=== PATIENT | female | born 1995 | race Caucasian/White ===

== ENCOUNTER 2017-11-22 14:23 | Emergency (ER) | payer OTHER ==
[~2017-11-22 14:23] MED LIST: CEFU500T50 PO; HYDR-4309 PO; NORG1TAB82 PO
[2017-11-22] MEDS ORDERED: MIRENA (14:44)
[2017-11-22] MEDS ORDERED: ONDANSETRON 8 MG TAB PO PRN (15:00)
[2017-11-22] MEDS ORDERED: ONDANSETRON 4 MG ODT TABDP SL ONE (15:05)
[2017-11-22 15:30] VITALS: BP 107/68
[2017-11-22] MEDS ORDERED: ONDA4TAB PO (15:52)
[2017-11-22] MEDS ORDERED: KET10 PO (15:52)
--- NOTE | 2017-11-22 16:00 | ER Report ---
History and Physical Time Seen By MD: 14:35 Hx. of Stated Complaint: PATIENT STATES THAT ON THURSDAY SHE HAD AN IUD PLACED; STATES THAT IT WAS HARD GETTING IN AND HER CRAMPS HAVE BEEN GETTING WORSE HPI/ROS Chief Complaint: "Abdominal Cramping" HPI: The patient is the primary historian. She reports that she had a Mirena IUD placed on [facility] [place], she initially experienced abdominal cramping and some brown spotting following the IUD placement however, her cramping has become significantly worse within the past day. She reports that this morning she noticed scant, malia, red, blood on her shorts and on her bath-tissue. She reports her abdominal pain is currently a 7 out of 10. The pain is constant and localized to the lower abdomen but with movement she feels shooting right lower quadrant pain. Ibuprofen and a heating pad improved her symptoms originally but are no longer working to improve symptoms or pain or cramping. She reports some associated nausea due to the intensity of the abdominal pain. No other treatments tried. She desires removal of the IUD. ROS Constitutional: denies fevers, chills or night sweats Cardiovascular: denies chest pain or palpitations Respiratory: denies shortness of breath or dyspnea GI/: Reports lower abdominal pain, reports RLQ shooting pain, reports nausea , denies vomiting, denies changes in bowel habits, denies changes in urination Allergies: Uncoded Allergies: BANANAS (Adverse Reaction, Mild, 04/04/14) SEVERE HEADACHES Home Meds Active Scripts Ketorolac Tromethamine (KETOROLAC TROMETHAMINE) 10 Mg Tab, 10 MG PO Q6H for 3 Days, #12 TAB Prov:GEOVANNI THOMPSON 11/22/17 Ondansetron (ZOFRAN ODT) 4 Mg Tab.rapdis, 4 MG PO Q6H Y for NAUSEA/VOMITING, # 20 TAB.LASHONDA Prov:GEOVANNI THOMPSON 11/22/17 Reported Medications [Mirena] No Conflict Check 11/22/17 Discontinued Reported Medications Hydrocodone Bit/Acetaminophen (NORCO 5-325 TABLET) 1 Each Tablet, 1 EACH PO Q4- 6H Y for PRN 04/04/14 Cefuroxime Axetil (CEFTIN) 500 Mg Tablet, 500 MG PO BID, #20 TAB TAKE 1 TABLET TWICE DAILY. 04/04/14 Norgestimate-Ethinyl Estradiol (Trinessa) 1 Tab Tablet, 1 TAB PO DAILY 07/09/12 Past Medical/Surgical History Mirena IUD placed 11/19/2017 Nexplanon removal required surgical innervation due to migration. Tonsillitis March and April 2014 [place]-tonsil abscess 2013 Hx Smoking: No Smoking Status: Never Smoker Exposure to Second Hand Smoke?: No Hx Substance Use Disorder: No Hx Alcohol Use: No Constitutional Vital Sign - Last 24 Hours 11/22/17 11/22/17 11/22/17 11/22/17 14:28 14:30 14:53 15:00 Temp 98.7 Pulse 83 78 Resp 17 B/P (MAP) 121/82 121/82 (95) 116/80 (92) Pulse Ox 96 96 O2 Delivery Room Air 11/22/17 11/22/17 15:23 15:30 Pulse 72 B/P (MAP) 107/68 (81) Pulse Ox 94 Physical Exam Constitutional: 22-year-old female appears in pain, HEENT: normocephalic, atraumatic, eyes non-injected BL, pupils round and equal BL CV: PMI left sternal boarder, Clear S1 S2, no murmurs Respiratory: BL equal respiratory excursion, CTA BL GI: guarding, normoactive BS x 4, right lower quadrant pain and suprapubic pain on palpation : External genitalia normal without erythema, vaginal mucosa pink, cervix pink with minimal clear to milky discharge in the vaginal vault, two IUD strings noted protruding from the cervix Musculoskeletal: free, full ROM of all extremities Skin: no rashes or lesions Neurological: alert and oriented x 4 Differential diagnoses include the following: migration of the IUD, rejection of the IUD, STI, , endometriosis Medical Decision Making ED Course/Re-evaluation ED Course 22-year-old female presented to the Emergency Department with severe lower abdominal and cramping following the placement of her Mirena IUD last . She reports desire to have the IUD removed due to the pain. History and physical examination was obtained. Differential diagnoses were considered and discussed with the patient and family. The patient's IUD was removed per request without complication. The patient states that she will use her control pills for contraception and she agrees to use condoms for at least 7 days. The patient has been encouraged to return to the ED if she experiences severe bleeding, increased pain, or systemic symptoms such as fevers or vomiting. The patient has been prescribed Zofran and Toradol for pain and nausea. She has been encouraged to follow up with her primary care provider within the next week. Procedure Patient made comfortable with Zofran and Percocet for treatment of nausea and abdominal pain. Patient positioned for gynecological exam. Speculum inserted without complication and cervix observed with IUD strings protruding the cervix. IUD removed by strings without complication. Patient reports feeling better after removal. Scant blood noted on the IUD. Decision to Disposition Date: Nov 22, 2017 Decision to Disposition Time: 15:46 Depart Departure Latest Vital Signs Vital Signs Date Time Temp Pulse Resp B/P (MAP) Pulse Ox O2 Delivery O2 Flow Rate FiO2 11/22/17 15:30 107/68 (81) 11/22/17 15:23 72 94 11/22/17 14:28 98.7 17 Room Air Impression: Primary Impression: IUD complication Condition: Improved Disposition: HOME OR SELF-CARE Referrals: ADELINE BAER (PCP) Jonn Garcia Ketorolac Tromethamine (KETOROLAC TROMETHAMINE) 10 Mg Tab 10 MG PO Q6H for 3 Days, #12 TAB Prov: GEOVANNI THOMPSON 11/22/17 Ondansetron (ZOFRAN ODT) 4 Mg Tab.rapdis 4 MG PO Q6H Y for NAUSEA/VOMITING, #20 TAB.LASHONDA Prov: GEOVANNI THOMPSON 11/22/17 Patient Instructions: Abdominal Pain (ED) Additional Instructions: Take Zofran as need for nausea. Take Toradol as needed for pain and cramping. Minimal bleeding and cramping may be expected for 2-3 days however, return to the Emergency Department if your condition worsens or if you start having significant bleeding, severe pain, vomiting, or feverish symptoms. Follow up with your primary care provider within the next week. Problem Qualifiers Primary Impression: IUD complication Device complication type: unspecified Encounter type: initial encounter Qualified Codes: T83.9XXA - Unspecified complication of genitourinary prosthetic device, implant and graft, initial encounter GEOVANNI THOMPSON Nov 22, 2017 16:00
== END 2017-11-22 16:05 | disposition home or self-care (01) ==
LOC: ER 14:37
DX: T83.9XXA Unspecified complication of genitourinary prosthetic device, implant and graft, initial encounter (principal)
CPT/HCPCS: 58301; 99283; S0119